=== PATIENT | female | born 1990 | race Caucasian/White ===

== ENCOUNTER 2017-11-10 21:00 | Inpatient (IN) | payer OTHER ==
[2017-11-10] MEDS: SOD CHLORIDE 0.9% 1,000 ML IV (22:43)
[2017-11-10] MEDS: ACETAMINOPHEN 500 MG TAB PO (22:59)
[2017-11-10 23:07] LABS: ADD MAN DIFF? NO
[2017-11-10 23:10] LABS: BASOPHILS % 0.2 % (0.0-2.0); EOSINOPHILS % 0.2 % (0.0-7.0); HEMATOCRIT 31.5 % (37.0-47.0); HEMOGLOBIN 10.8 g/dl (12.0-16.0); LYMPHOCYTES # 0.6 10^3/ul (0.8-2.9); LYMPHOCYTES % 6.4 % (15.0-51.0); MEAN CORPUSCULAR HEMOGLOBIN 30.6 pg (29.0-33.0); MEAN CORPUSCULAR HGB CONC 34.3 g/dl (32.0-37.0); MEAN CORPUSCULAR VOLUME 89.2 fl (82.0-101.0); MEAN PLATELET VOLUME 11.4 fl (7.4-10.4); MONOCYTE # 0.4 10^3/ul (0.3-0.9); MONOCYTES % 4.5 % (0.0-11.0); NEUTROPHIL # 8.5 10^3/ul (1.6-7.5); NEUTROPHILS % 88.3 % (39.0-77.0); PLATELET COUNT 188 10^3/UL (140-415); RED BLOOD COUNT 3.53 10^6/ul (4.20-5.40)
[2017-11-10 23:10] LABS: WHITE BLOOD COUNT 9.6 10^3/ul (4.8-10.8)
[2017-11-10 23:13] LABS: ADD UMIC YES; UR ASCORBIC ACID NEGATIVE (NEGATIVE); UR BACTERIA FEW /HPF (NONE SEEN); UR BILIRUBIN (Dip) NEGATIVE (NEGATIVE); UR BLOOD (Dip) 3+ mg/dL (NEGATIVE); UR CLARITY CLEAR (CLEAR); UR COLOR STRAW (YELLOW); UR GLUCOSE (Dip) NEGATIVE (NEGATIVE); UR KETONES (Dip) NEGATIVE (NEGATIVE); UR LEUKOCYTE ESTERASE (Dip) NEGATIVE Leu/ul (NEGATIVE); UR NITRITE (Dip) NEGATIVE (NEGATIVE); UR RBC 8 /HPF (0-5); UR SPECIFIC GRAVITY (Dip) 1.004 (1.003-1.030); UR SQUAMOUS EPITHELIAL CELL FEW /HPF (FEW); UR TOTAL PROTEIN (Dip) NEGATIVE (NEGATIVE); UR UROBILINOGEN (Dip) NEGATIVE (NEGATIVE); UR WBC 1 /HPF (0-5)
[2017-11-11] MEDS: GENTAMICIN IV PER PHARMACY XX (01:59)
[2017-11-11] MEDS ORDERED: DOXYCYCLINE 100 MG in SOD CHLORIDE 0.9% 250 ML IVPB (02:00)
[2017-11-11] MEDS: LACTATED RINGER'S 1,000 ML IV ×4 (02:14→17:53)
[2017-11-11] MEDS: SOD CHLORIDE 0.9% 1,000 ML IV (02:17)
[2017-11-11] MEDS: DOXYCYCLINE 100 MG in SOD CHLORIDE 0.9% 250 ML IVPB (02:49)
[2017-11-11 03:02] LABS: ANION GAP 13 (8-16); BLOOD UREA NITROGEN 8 mg/dl (7-20); CALCIUM 8.6 mg/dl (8.4-10.2); CARBON DIOXIDE 23 mmol/L (21-31); CHLORIDE 112 mmol/L (97-110); CREATININE 0.61 mg/dl (0.44-1.00); GLUCOSE 90 mg/dl (70-220); SODIUM 144 mmol/L (135-144)
[2017-11-11 04:17] LABS: FIBRIN SPLIT PRODUCT <10 ug/ml (<10)
[2017-11-11] MEDS: GENTAMICIN 120 MG/NS (PMX) 100 ML IVPB (04:28)
[2017-11-11] MEDS: GENTAMICIN 100 MG/50 ML NS IVPB (11:40)
[2017-11-11] MEDS ORDERED: ACETAMINOPHEN 1000MG/100ML IV 100 ML ×2 (13:12→13:44)
[2017-11-11] MEDS ORDERED: PROPOFOL 20 ML (13:12)
[2017-11-11] MEDS ORDERED: FENTAnyl 50 MCG/ML VIAL (13:12)
[2017-11-11] MEDS ORDERED: MIDAZOLAM 1 MG/ML 2 ML INJ (13:12)
[2017-11-11] MEDS ORDERED: DEXAMETHASONE 4 MG/ML 1 ML INJ (13:13)
[2017-11-11] MEDS ORDERED: ONDANSETRON 4 MG INJ (13:13)
[2017-11-11] MEDS ORDERED: CEFAZOLIN 1 GM INJ (13:18)
[2017-11-11] MEDS ORDERED: METOCLOPRAMIDE 10 MG INJ (13:18)
[2017-11-11] MEDS ORDERED: MEPERIDINE 25 MG INJ IV (13:30)
[2017-11-11] MEDS ORDERED: DIPHENHYDRAMINE 50 MG INJ IV (13:30)
[2017-11-11] MEDS ORDERED: ONDANSETRON 4 MG INJ IV (13:30)
[2017-11-11] MEDS ORDERED: HYDROmorphONE (0.2 MG/ML) 10ML SYG IV (13:30)
[2017-11-11] MEDS ORDERED: FENTAnyl 50 MCG/ML VIAL IV ×2 (13:30)
[2017-11-11] MEDS ORDERED: PHENYLephrine (100 MCG/ML) 5ML SYG (13:42)
[2017-11-11] MEDS ORDERED: SCOPOLAMINE 1.5 MG PATCH (13:44)
[2017-11-11] MEDS ORDERED: OXYTOCIN 10 UNIT INJ (13:51)
[2017-11-11] MEDS ORDERED: KETOROLAC 30 MG INJ IV (14:00)
[2017-11-11] MEDS ORDERED: IBUPROFEN 600 MG TAB PO (14:00)
[2017-11-12] MEDS ORDERED: [UNRECOGNIZED DRUG - REMARK] XX (03:00)
== END 2017-11-11 17:35 | disposition home or self-care (01) | DRG 770 ==
LOC: PP2 11-11 01:54 → FTE 21:00 → PP2 11-11 05:57
PROVIDERS: Obstetrics & Gynecology Obstetrics
PROC: 10D17ZZ Extraction of Products of Conception, Retained, Via Natural or Artificial Opening (ICD-10-PCS; principal; 2017-11-11 13:00)
DX: O03.30 Unspecified complication following incomplete spontaneous abortion (principal); E66.01 Morbid (severe) obesity due to excess calories; Z68.29 Body mass index [BMI] 29.0-29.9, adult
CPT/HCPCS: 36415; 76801; 76817; 80048; 81001; 81025; 84702; 85025; 85362; 85384; 86850; 86900; 86901; 88305; 96361; 96365; 99285-25

== ENCOUNTER 2018-12-19 17:52 | Outpatient (CLI) | payer OTHER ==
[2018-12-19] MEDS ORDERED: LACTATED RINGER'S 1,000 ML IV (21:00)
[2018-12-19] MEDS: LACTATED RINGER'S 1,000 ML IV (21:48)
== END 2018-12-19 22:57 | disposition home or self-care (01) ==
LOC: OBT 17:52 → L-D 17:53 → OBT 22:57
DX: O26.893 Other specified pregnancy related conditions, third trimester (principal); R10.13 Epigastric pain; O34.212 Maternal care for vertical scar from previous cesarean delivery; Z3A.38 38 weeks gestation of pregnancy
CPT/HCPCS: 36415; 96360

== ENCOUNTER 2018-12-22 07:14 | Inpatient (IN) | payer OTHER ==
[2018-12-22] MEDS ORDERED: MISOPROSTOL 200 MCG TAB PR ×2 (08:00→12:30)
[2018-12-22] MEDS ORDERED: METHYLERGONOVINE 0.2 MG INJ IM ×2 (08:00→12:30)
[2018-12-22] MEDS ORDERED: CARBOPROST 250 MCG INJ IM ×2 (08:00→12:30)
[2018-12-22 08:35] LABS: ADD MAN DIFF? NO
[2018-12-22 08:36] LABS: WHITE BLOOD COUNT 9.5 10^3/ul (4.8-10.8)
[2018-12-22 08:36] LABS: BASOPHILS % 0.3 % (0.0-2.0); EOSINOPHILS # 0.1 10^3/ul (0.0-0.5); EOSINOPHILS % 1.3 % (0.0-7.0); HEMOGLOBIN 11.8 g/dl (12.0-16.0); LYMPHOCYTES # 1.9 10^3/ul (0.8-2.9); LYMPHOCYTES % 19.6 % (15.0-51.0); MEAN CORPUSCULAR HEMOGLOBIN 29.6 pg (29.0-33.0); MEAN CORPUSCULAR HGB CONC 33.7 g/dl (32.0-37.0); MEAN CORPUSCULAR VOLUME 87.9 fl (82.0-101.0); MEAN PLATELET VOLUME 11.6 fl (7.4-10.4); MONOCYTE # 0.6 10^3/ul (0.3-0.9); MONOCYTES % 6.8 % (0.0-11.0); NEUTROPHIL # 6.7 10^3/ul (1.6-7.5); NEUTROPHILS % 71.2 % (39.0-77.0); PLATELET COUNT 193 10^3/UL (140-415); RED BLOOD COUNT 3.98 10^6/ul (4.20-5.40); RED CELL DISTRIBUTION WIDTH 14.5 % (11.5-14.5)
[2018-12-22] MEDS ORDERED: morphine SULFATE/PF (10 MG/10 ML) INJ (08:47)
[2018-12-22] MEDS ORDERED: FENTAnyl 50 MCG/ML VIAL (08:48)
[2018-12-22] MEDS: LACTATED RINGER'S 1,000 ML IV ×2 (08:50→17:39)
[2018-12-22 09:02] LABS: PROTIME 13.3 Sec (11.9-14.9)
[2018-12-22 09:03] LABS: PARTIAL THROMBOPLASTIN TIME 27.5 Sec (23.0-35.0)
[2018-12-22] MEDS ORDERED: CEFAZOLIN 2 GM/50 ML (PMX) 50 ML IVPB (09:38)
[2018-12-22] MEDS ORDERED: PHENYLephrine (100 MCG/ML) 10ML SYG (09:44)
[2018-12-22] MEDS ORDERED: PHENYLephrine 10 MG INJ (09:44)
[2018-12-22] MEDS ORDERED: DEXAMETHASONE 4 MG/ML 1 ML INJ (10:28)
[2018-12-22] MEDS ORDERED: ONDANSETRON 4 MG INJ (10:28)
[2018-12-22] MEDS ORDERED: NALOXONE (0.4 MG/ML) INJ IV (11:00)
[2018-12-22] MEDS ORDERED: ZOLPIDEM 5 MG TAB PO (11:00)
[2018-12-22] MEDS ORDERED: HYDROmorphONE 0.5 MG/0.5 ML SYG IV (11:00)
[2018-12-22] MEDS ORDERED: DIPHENHYDRAMINE 50 MG INJ IV (11:00)
[2018-12-22] MEDS ORDERED: ONDANSETRON 4 MG INJ IV (11:00)
[2018-12-22] MEDS: OXYTOCIN 30 UNITS/LR 500 ML IV ×2 (11:35→13:41)
[2018-12-22] MEDS: CEFAZOLIN 2 GM/50 ML (PMX) 50 ML IVPB ×2 (12:21→21:25)
[2018-12-22] MEDS: KETOROLAC 30 MG INJ IV ×2 (12:22→21:01)
[2018-12-22] MEDS ORDERED: OXYTOCIN 30 UNITS/LR 500 ML IV (12:30)
[2018-12-22] MEDS ORDERED: NACL 0.9% 3 ML SYG IV (12:30)
[2018-12-22] MEDS: HYDROmorphONE 0.5 MG/0.5 ML SYG IV (13:00)
[2018-12-23] MEDS: LACTATED RINGER'S 1,000 ML IV ×3 (02:32→16:00)
[2018-12-23] MEDS: CEFAZOLIN 2 GM/50 ML (PMX) 50 ML IVPB ×3 (04:30→15:46)
[2018-12-23] MEDS: KETOROLAC 30 MG INJ IV (05:34)
[2018-12-23 07:40] LABS: ADD MAN DIFF? NO
[2018-12-23 07:48] LABS: WHITE BLOOD COUNT 13.6 10^3/ul (4.8-10.8)
[2018-12-23 07:48] LABS: BASOPHILS % 0.1 % (0.0-2.0); EOSINOPHILS % 0.1 % (0.0-7.0); HEMATOCRIT 29.4 % (37.0-47.0); HEMOGLOBIN 9.8 g/dl (12.0-16.0); LYMPHOCYTES # 1.7 10^3/ul (0.8-2.9); LYMPHOCYTES % 12.2 % (15.0-51.0); MEAN CORPUSCULAR HGB CONC 33.3 g/dl (32.0-37.0); MEAN PLATELET VOLUME 11.6 fl (7.4-10.4); MONOCYTE # 1.2 10^3/ul (0.3-0.9); MONOCYTES % 8.4 % (0.0-11.0); NEUTROPHIL # 10.7 10^3/ul (1.6-7.5); NEUTROPHILS % 78.3 % (39.0-77.0); PLATELET COUNT 189 10^3/UL (140-415); RED BLOOD COUNT 3.38 10^6/ul (4.20-5.40); RED CELL DISTRIBUTION WIDTH 14.5 % (11.5-14.5)
[2018-12-23] MEDS: LANOLIN HPA 1 PKT TOP (15:46)
[2018-12-23] MEDS: OXYCODONE/ACETAMINOPHEN (5/325) TAB PO (15:46)
[2018-12-23] MEDS: IBUPROFEN 600 MG TAB PO ×2 (18:11→23:46)
[2018-12-23] MEDS: FERROUS SULFATE (EC) 325 MG TAB PO (20:42)
[2018-12-24] MEDS: IBUPROFEN 600 MG TAB PO ×3 (05:33→18:20)
[2018-12-24 08:14] LABS: ADD MAN DIFF? NO
[2018-12-24 08:16] LABS: WHITE BLOOD COUNT 9.4 10^3/ul (4.8-10.8)
[2018-12-24 08:16] LABS: BASOPHILS % 0.3 % (0.0-2.0); EOSINOPHILS # 0.1 10^3/ul (0.0-0.5); HEMATOCRIT 29.4 % (37.0-47.0); HEMOGLOBIN 9.6 g/dl (12.0-16.0); LYMPHOCYTES # 2.1 10^3/ul (0.8-2.9); LYMPHOCYTES % 22.5 % (15.0-51.0); MEAN CORPUSCULAR HEMOGLOBIN 29.4 pg (29.0-33.0); MEAN CORPUSCULAR HGB CONC 32.7 g/dl (32.0-37.0); MEAN CORPUSCULAR VOLUME 90.2 fl (82.0-101.0); MEAN PLATELET VOLUME 11.5 fl (7.4-10.4); MONOCYTE # 0.8 10^3/ul (0.3-0.9); MONOCYTES % 8.1 % (0.0-11.0); NEUTROPHIL # 6.3 10^3/ul (1.6-7.5); NEUTROPHILS % 67.2 % (39.0-77.0); PLATELET COUNT 166 10^3/UL (140-415); RED BLOOD COUNT 3.26 10^6/ul (4.20-5.40); RED CELL DISTRIBUTION WIDTH 15.1 % (11.5-14.5)
[2018-12-24] MEDS: FERROUS SULFATE (EC) 325 MG TAB PO ×2 (08:51→22:05)
[2018-12-24 15:06] LABS: RAPID PLASMA REAGIN NONREACTIVE (NR)
[2018-12-24] MEDS: NA PHOSPHATE/BIPHOS 133 ML ENEMA PR (22:05)
[2018-12-25] MEDS: IBUPROFEN 600 MG TAB PO ×3 (00:28→12:32)
[2018-12-25] MEDS: OXYCODONE/ACETAMINOPHEN (5/325) TAB PO ×2 (00:28→10:33)
[2018-12-25] MEDS: FERROUS SULFATE (EC) 325 MG TAB PO (10:33)
[2018-12-25] MEDS: DIPHTH/TET/ACEL PERTUSS (ADULT) 0.5 ML VIAL IM* (13:38)
== END 2018-12-25 14:50 | disposition home or self-care (01) | DRG 788 ==
LOC: L-D 07:14 → PP1 14:02
PROC: 10D00Z1 Extraction of Products of Conception, Low, Open Approach (ICD-10-PCS; principal; 2018-12-22 09:00)
DX: O34.212 Maternal care for vertical scar from previous cesarean delivery (principal); O99.214 Obesity complicating childbirth; E66.9 Obesity, unspecified; Z3A.39 39 weeks gestation of pregnancy; Z37.0 Single live birth; Z23 Encounter for immunization
CPT/HCPCS: 85025; 85610; 85730; 86592; 86850; 86900; 86901; 90715; 99464